=== PATIENT | male | born 1975 | race American Indian/Alaskan Native ===

== ENCOUNTER 2021-03-30 07:36 | Outpatient (CLI) | payer OTHER | END 2021-03-30 07:37 | disposition home or self-care (01) | LOC: PF 07:36 | PROVIDERS: ATTEND Internal Medicine | DX: U07.1 COVID-19 (principal); I10 Essential (primary) hypertension; G62.9 Polyneuropathy, unspecified | CPT/HCPCS: 94010; 94729 ==